=== PATIENT | female | born 1980 | race American Indian/Alaskan Native ===

== ENCOUNTER 2018-10-10 11:27 | Outpatient (CLI) | payer OTHER ==
--- NOTE | 2018-10-10 11:55 | Mammography Report ---
BILATERAL MAMMOGRAM: FINDINGS: Baseline mammogram. The breasts are almost entirely fat (<25% glandular). No mass, distortion, suspicious calcification, or skin change is seen. CAD was utilized. IMPRESSION: Negative mammogram. There is no mammographic evidence of malignancy. RECOMMENDATION: Follow-up per ACS guidelines. BI-RADS CATEGORY: 1 = Negative ACR BI-RADS MAMMOGRAPHIC CODES: 0 = Needs additional imaging evaluation; 1 = Negative; 2 = Benign; 3 = Probably benign; 4 = Suspicious; 5 = Malignant; 6 = Known biopsy-proven malignancy COMMENT: 1. Dense breast tissue, i.e., adenosis, fibrocystic changes, etc., may obscure an underlying neoplasm. 2. Approximately 10% of cancers are not detected with mammography. 3. A negative mammography report should not delay biopsy if a clinically suspicious mass is present. COMMENT: Patient follow-up letters are generated in [facility].
== END 2018-10-10 11:28 | disposition home or self-care (01) ==
LOC: SPVWC 11:27
PROVIDERS: ATTEND Family Medicine
DX: Z12.31 Encounter for screening mammogram for malignant neoplasm of breast (principal)
CPT/HCPCS: 77067

== ENCOUNTER 2018-11-03 18:42 | Emergency (ER) | payer OTHER ==
--- NOTE | 2018-11-03 19:01 | Emergency Department Report ---
Blank Doc - Documentation Documentation: This is a [id number] that presents with chest pain and shortness of breathe. Stated chest pain radiates to back. This initial assessment diagnostic orders/clinical plan/treatment(s) is/are subject to change based on patient's health status, clinical progression and re-assessment by fellow clinical providers in the ED. Further treatment and workup at subsequent clinical providers discretion. Patient/guardians urged not to elope from ED s their condition may be serious if not clinically assessed and managed. Initial orders include: 1-Patient sent to MAIN ED for further evaluation and treatment 2- EKG 3- CXR 4- Labs
[2018-11-03 19:37] LABS: Basophils % (Auto) 0.6 % (0.0-1.8); Eosinophils % (Auto) 0.4 % (0.0-4.3); Hematocrit 40.7 % (30.3-42.9); Hemoglobin 13.9 gm/dl (10.1-14.3); Lymphocytes # (Auto) 1.3 K/mm3 (1.2-5.4); Lymphocytes % (Auto) 21.3 % (13.4-35.0); Mean Corpuscular HGB Conc 34 % (30-34); Mean Corpuscular Volume 87 fl (79-97); Monocytes # (Auto) 0.5 K/mm3 (0.0-0.8); Monocytes % (Auto) 8.4 % (0.0-7.3); Platelet Count 197 K/mm3 (140-440); Red Blood Count 4.67 M/mm3 (3.65-5.03); Red Cell Distribution Width 14.2 % (13.2-15.2)
[2018-11-03 19:42] LABS: INR 0.95 (0.87-1.13); Partial Thromboplastin Time 33.4 Sec. (24.2-36.6)
[2018-11-03 19:55] LABS: Alanine Aminotransferase 21 units/L (7-56); Albumin 4.6 g/dL (3.9-5); BUN/Creatinine Ratio 10; Blood Urea Nitrogen 7 mg/dL (7-17); Calcium 9.3 mg/dL (8.4-10.2); Hemolysis Index 5
--- NOTE | 2018-11-03 20:44 | XRay Report ---
FINAL REPORT PROCEDURE: XR CHEST ROUTINE 2V TECHNIQUE: PA and lateral chest radiographs were obtained. CPT 01502 HISTORY: Chest Pain COMPARISON: No prior studies are available for comparison. FINDINGS: Heart: Normal. Mediastinum/Vessels: Normal. Lungs/Pleural space: Normal. Bony thorax: No acute osseous abnormality. Other: IMPRESSION: Normal examination.
[2018-11-03 21:48] LABS: Bilirubin,Urine NEG (Negative); Blood,Urine NEG (Negative); Color,Urine Straw (Yellow); Protein,Urine <15 mg/dL mg/dL (Negative); RBC,Urine < 1.0 /HPF (0.0-6.0); Urobilinogen,Urine < 2.0 mg/dL (<2.0); WBC,Urine < 1.0 /HPF (0.0-6.0)
[2018-11-03 21:56] LABS: Amphetamine Screen,Urine PRESUMPTIVE NEGATIVE; Benzodiazepines Screen,Urine PRESUMPTIVE NEGATIVE; Cannabinoid Screen,Urine PRESUMPTIVE NEGATIVE; Cocaine Screen,Urine PRESUMPTIVE NEGATIVE; Methadone Screen,Urine PRESUMPTIVE NEGATIVE; Opiate Screen,Urine PRESUMPTIVE NEGATIVE
--- NOTE | 2018-11-03 21:57 | Emergency Department Report ---
ED General Adult HPI - General Chief complaint: Chest Pain Stated complaint: CHEST PAIN/SOB Time Seen by Provider: 11/03/18 18:56 Source: patient Mode of arrival: Ambulatory Limitations: No Limitations - History of Present Illness Initial comments: Patient is a 38-year-old asthmatic female who is presenting with some chest discomfort. Patient states she has a mild cough is nonproductive and chest pain with coughing for the past 3 days. Patient states she also has some shortness of breath as well. Patient denies any fevers chills next if no sore throat at this time. Severity scale (0 -10): 3 Quality: aching Consistency: constant Associated Symptoms: chest pain, cough. denies: confusion, diaphoresis, fever/chills, headaches, loss of appetite, malaise, nausea/vomiting, rash, seizure, shortness of breath, syncope, weakness - Related Data Previous Rx's Medication Instructions Recorded Last Taken Type ALBUTEROL Inhaler (OR & NICU) 2 puff IH QID PRN #1 inhalation 11/03/18 Unknown Rx [ProAir HFA Inhaler] predniSONE [Deltasone] 20 mg PO QDAY #5 tab 11/03/18 Unknown Rx traMADol [Ultram] 50 mg PO Q6HR PRN #12 tablet 11/03/18 Unknown Rx Allergies Allergy/AdvReac Type Severity Reaction Status Date / Time No Known Allergies Allergy Unverified 11/03/18 18:55 ED Review of Systems ROS: Stated complaint: CHEST PAIN/SOB Other details as noted in HPI Comment: All other systems reviewed and negative ED Past Medical Hx - Past Medical History Previous Medical History?: No - Social History Smoking Status: Never Smoker Substance Use Type: None - Medications Home Medications: Home Medications Medication Instructions Recorded Confirmed Last Taken Type ALBUTEROL Inhaler (OR & NICU) 2 puff IH QID PRN #1 inhalation 11/03/18 Unknown Rx [ProAir HFA Inhaler] predniSONE [Deltasone] 20 mg PO QDAY #5 tab 11/03/18 Unknown Rx traMADol [Ultram] 50 mg PO Q6HR PRN #12 tablet 11/03/18 Unknown Rx ED Physical Exam - General Limitations: No Limitations General appearance: alert, in no apparent distress - Head Head exam: Present: atraumatic, normocephalic - Eye Eye exam: Present: normal appearance - ENT ENT exam: Present: mucous membranes moist - Neck Neck exam: Present: normal inspection - Respiratory Respiratory exam: Present: normal lung sounds bilaterally. Absent: respiratory distress, wheezes, rales, rhonchi - Cardiovascular Cardiovascular Exam: Present: regular rate, normal rhythm. Absent: systolic murmur, diastolic murmur, rubs, gallop - GI/Abdominal GI/Abdominal exam: Present: soft, normal bowel sounds. Absent: distended, tenderness, guarding, rebound - Extremities Exam Extremities exam: Present: normal inspection - Back Exam Back exam: Present: normal inspection - Neurological Exam Neurological exam: Present: alert, oriented X3 - Psychiatric Psychiatric exam: Present: normal affect, normal mood - Skin Skin exam: Present: warm, dry, intact, normal color. Absent: rash ED Course Vital Signs 11/03/18 11/03/18 11/03/18 19:19 21:16 21:31 Temperature 98.6 F Pulse Rate 66 53 L 54 L Respiratory 18 19 18 Rate Blood Pressure 145/100 137/78 117/69 O2 Sat by Pulse 100 97 99 Oximetry 11/03/18 21:41 Temperature Pulse Rate Respiratory 18 Rate Blood Pressure O2 Sat by Pulse 99 Oximetry ED Medical Decision Making - Lab Data Result diagrams: 11/03/18 19:09 11/03/18 19:09 Lab Results 11/03/18 11/03/18 11/03/18 Range/Units 19:09 19:09 19:09 WBC 6.1 (4.5-11.0) K/mm3 RBC 4.67 (3.65-5.03) M/mm3 Hgb 13.9 (10.1-14.3) gm/dl Hct 40.7 (30.3-42.9) % MCV 87 (79-97) fl MCH 30 (28-32) pg MCHC 34 (30-34) % RDW 14.2 (13.2-15.2) % Plt Count 197 (140-440) K/mm3 Lymph % (Auto) 21.3 (13.4-35.0) % [place] % (Auto) 8.4 H (0.0-7.3) % Eos % (Auto) 0.4 (0.0-4.3) % Baso % (Auto) 0.6 (0.0-1.8) % Lymph # 1.3 (1.2-5.4) K/mm3 [place] # 0.5 (0.0-0.8) K/mm3 Eos # 0.0 (0.0-0.4) K/mm3 Baso # 0.0 (0.0-0.1) K/mm3 Seg Neutrophils % 69.3 (40.0-70.0) % Seg Neutrophils # 4.2 (1.8-7.7) K/mm3 PT 13.3 (12.2-14.9) Sec. INR 0.95 (0.87-1.13) APTT 33.4 (24.2-36.6) Sec. D-Dimer 220.95 (0-234) ng/mlDDU Sodium 141 (137-145) mmol/L Potassium 4.1 (3.6-5.0) mmol/L Chloride 101.2 (98-107) mmol/L Carbon Dioxide 26 (22-30) mmol/L Anion Gap 18 mmol/L BUN 7 (7-17) mg/dL Creatinine 0.7 (0.7-1.2) mg/dL Estimated GFR > 60 ml/min BUN/Creatinine Ratio 10 % Glucose 116 H (65-100) mg/dL Calcium 9.3 (8.4-10.2) mg/dL Total Bilirubin 0.20 (0.1-1.2) mg/dL AST 22 (5-40) units/L ALT 21 (7-56) units/L Alkaline Phosphatase 93 (35-129) units/L Troponin T < 0.010 (0.00-0.029) ng/mL Total Protein 7.7 (6.3-8.2) g/dL Albumin 4.6 (3.9-5) g/dL Albumin/Globulin Ratio 1.5 % HCG, Qual (Negative) Urine Color (Yellow) Urine Turbidity (Clear) Urine pH (5.0-7.0) Ur Specific [place] (1.003-1.030) Urine Protein (Negative) mg/dL Urine Glucose (UA) (Negative) mg/dL Urine Ketones (Negative) mg/dL Urine Blood (Negative) Urine Nitrite (Negative) Urine Bilirubin (Negative) Urine Urobilinogen (<2.0) mg/dL Ur Leukocyte Esterase (Negative) Urine WBC (Auto) (0.0-6.0) /HPF Urine RBC (Auto) (0.0-6.0) /HPF Urine Opiates Screen Urine Methadone Screen Ur Barbiturates Screen Ur Phencyclidine Scrn Ur Amphetamines Screen U Benzodiazepines Scrn Urine Cocaine Screen U Marijuana (THC) Screen 11/03/18 11/03/18 11/03/18 Range/Units 19:09 21:19 21:19 WBC (4.5-11.0) K/mm3 RBC (3.65-5.03) M/mm3 Hgb (10.1-14.3) gm/dl Hct (30.3-42.9) % MCV (79-97) fl MCH (28-32) pg MCHC (30-34) % RDW (13.2-15.2) % Plt Count (140-440) K/mm3 Lymph % (Auto) (13.4-35.0) % [place] % (Auto) (0.0-7.3) % Eos % (Auto) (0.0-4.3) % Baso % (Auto) (0.0-1.8) % Lymph # (1.2-5.4) K/mm3 [place] # (0.0-0.8) K/mm3 Eos # (0.0-0.4) K/mm3 Baso # (0.0-0.1) K/mm3 Seg Neutrophils % (40.0-70.0) % Seg Neutrophils # (1.8-7.7) K/mm3 PT (12.2-14.9) Sec. INR (0.87-1.13) APTT (24.2-36.6) Sec. D-Dimer (0-234) ng/mlDDU Sodium (137-145) mmol/L Potassium (3.6-5.0) mmol/L Chloride (98-107) mmol/L Carbon Dioxide (22-30) mmol/L Anion Gap mmol/L BUN (7-17) mg/dL Creatinine (0.7-1.2) mg/dL Estimated GFR ml/min BUN/Creatinine Ratio % Glucose (65-100) mg/dL Calcium (8.4-10.2) mg/dL Total Bilirubin (0.1-1.2) mg/dL AST (5-40) units/L ALT (7-56) units/L Alkaline Phosphatase (35-129) units/L Troponin T (0.00-0.029) ng/mL Total Protein (6.3-8.2) g/dL Albumin (3.9-5) g/dL Albumin/Globulin Ratio % HCG, Qual Negative (Negative) Urine Color Straw (Yellow) Urine Turbidity Clear (Clear) Urine pH 6.0 (5.0-7.0) Ur Specific [place] Log 1.008 (1.003-1.030) Urine Protein <15 mg/dl (Negative) mg/dL Urine Glucose (UA) Neg (Negative) mg/dL Urine Ketones Neg (Negative) mg/dL Urine Blood Neg (Negative) Urine Nitrite Neg (Negative) Urine Bilirubin Neg (Negative) Urine Urobilinogen < 2.0 (<2.0) mg/dL Ur Leukocyte Esterase Neg (Negative) Urine WBC (Auto) < 1.0 (0.0-6.0) /HPF Urine RBC (Auto) < 1.0 (0.0-6.0) /HPF Urine Opiates Screen Presumptive negative Urine Methadone Screen Presumptive negative Ur Barbiturates Screen Presumptive negative Ur Phencyclidine Scrn Presumptive negative Ur Amphetamines Screen Presumptive negative U Benzodiazepines Scrn Presumptive negative Urine Cocaine Screen Presumptive negative U Marijuana (THC) Screen Presumptive negative - EKG Data -: EKG Interpreted by [place] EKG shows normal: sinus rhythm, axis, intervals, QRS complexes, ST-T waves Rate: normal - EKG Data Interpretation: normal EKG - Radiology Data CXR WNL - Medical Decision Making Patient with a normal troponin and normal d-dimer. Chest x-ray is within normal limits. Patient likely with mild upper respiratory infection with costochondr itis. Patient discharged home. Critical care attestation.: If time is entered above; I have spent that time in minutes in the direct care of this critically ill patient, excluding procedure time. ED Disposition Clinical Impression: Costochondral chest pain Upper respiratory infection Qualifiers: URI type: unspecified URI Qualified Code(s): J06.9 - Acute upper respiratory infection, unspecified Disposition: TO HOME OR SELFCARE Is pt being admited?: No Does the pt Need Aspirin: No Condition: Stable Instructions: Chest Pain (ED), Costochondritis (ED) Referrals: RAMANDEEP VILLALPANDO MD [Primary Care Provider] - 3-5 Days Time of Disposition: 22:08
[2018-11-03 22:29] VITALS: BP 116/67
== END 2018-11-03 22:36 | disposition home or self-care (01) ==
LOC: ED 18:42
DX: J06.9 Acute upper respiratory infection, unspecified (principal); R07.9 Chest pain, unspecified
CPT/HCPCS: 36415; 71046; 80053; 80307; 81001; 84484; 84703; 85025; 85379; 85610; 85730; 93005

== ENCOUNTER 2019-04-10 22:28 | Emergency (ER) | payer OTHER ==
[2019-04-10 22:46] VITALS: BP 120/83
--- NOTE | 2019-04-11 00:12 | XRay Report ---
CHEST 2 VIEWS INDICATION / CLINICAL INFORMATION: SHAYAN. COMPARISON: To 01/26/2019 FINDINGS: SUPPORT DEVICES: None. HEART / MEDIASTINUM: No significant abnormality. LUNGS / PLEURA: No significant pulmonary or pleural abnormality. No pneumothorax. ADDITIONAL FINDINGS: No significant additional findings. IMPRESSION: 1. No acute findings. Signer Name: Maurizio Luna MD Signed: 04/11/2019 12:08 AM Workstation Name: [id number]
[2019-04-11] MEDS ORDERED: ROCEPHIN IM ONE (00:47)
[2019-04-11] MEDS ORDERED: XYLOCAINE 1% MPF 5 mL INFILTRATI ONE (00:47)
[2019-04-11] MEDS ORDERED: TORADOL IM ONE (00:47)
[2019-04-11] MEDS ORDERED: PERCOCET 5/325 PO ONE (00:47)
[2019-04-11] MEDS ORDERED: ZOFRAN ODT PO ONE (00:47)
--- NOTE | 2019-04-11 01:46 | Emergency Department Report ---
ED General Adult HPI - General Chief complaint: Dental/Oral Stated complaint: SHAYAN TOOTH PAIN HEADACHE DIZZINESS Time Seen by Provider: 04/11/19 00:20 Source: patient Mode of arrival: Ambulatory Limitations: No Limitations - History of Present Illness Initial comments: Patient is a 39-year-old -[place] female with a history of chronic anxiety and dental abscesses who presents with the ED with worsening left maxillary and mandibular premolar molar toothache and swollen gums after having a dental procedure one week ago. The patient states that she initially was not taking any antibiotics after the procedure, and had the dentist call in a prescription of antibiotics over 12 hours ago, which she has only taken one dose. The patient is currently taking clindamycin 300 mg every 6 hours, and ibuprofen 800 mg. Patient states that her dental pain and painful gums got worse over 12 hours ago, despite taking the pain medication. Patient also complains of headache and lightheadedness as well as shortness of breath. Patient denies fever, chills, nausea, vomiting, chest pain, sore throat, change in vision, neck pain, abdominal pain, cough or diarrhea. MD Complaint: Gum pain, headache, lightheadedness -: Sudden, week(s) (1) Location: mouth Radiation: non-radiation Severity scale (0 -10): 6 Quality: aching, sharp Consistency: constant Improves with: none Worsens with: none Associated Symptoms: denies other symptoms, headaches, shortness of breath. denies: confusion, chest pain, cough, diaphoresis, fever/chills, loss of appetite, malaise, nausea/vomiting, rash, syncope, weakness Treatments Prior to Arrival: NSAID - Related Data Previous Rx's Medication Instructions Recorded Last Taken Type ALBUTEROL Inhaler (OR & NICU) 2 puff IH QID PRN #1 inhalation 11/03/18 Unknown Rx [ProAir HFA Inhaler] predniSONE [Deltasone] 20 mg PO QDAY #5 tab 11/03/18 Unknown Rx traMADol [Ultram] 50 mg PO Q6HR PRN #12 tablet 11/03/18 Unknown Rx Acetaminophen/Codeine [Tylenol 1 tab PO Q6H PRN #12 tab 04/11/19 Unknown Rx /Codeine # 3 tab] Ketorolac [Toradol] 10 mg PO Q8H PRN #20 tablet 04/11/19 Unknown Rx hydrOXYzine PAMOATE [Vistaril] 25 mg PO Q6HR PRN #30 capsule 04/11/19 Unknown Rx Allergies Allergy/AdvReac Type Severity Reaction Status Date / Time No Known Allergies Allergy Unverified 11/03/18 18:55 ED Review of Systems ROS: Stated complaint: SHAYAN TOOTH PAIN HEADACHE DIZZINESS Other details as noted in HPI Constitutional: denies: chills, fever Eyes: denies: eye pain, eye discharge, vision change ENT: dental pain, other (swollen left mandibular gums). denies: ear pain, throat pain Respiratory: shortness of breath. denies: cough, orthopnea, wheezing Cardiovascular: denies: chest pain, palpitations Endocrine: no symptoms reported Gastrointestinal: denies: abdominal pain, nausea, diarrhea Genitourinary: denies: urgency, dysuria, discharge Musculoskeletal: denies: back pain, joint swelling, arthralgia Skin: denies: rash, lesions Neurological: headache. denies: weakness, paresthesias Psychiatric: denies: anxiety, depression Hematological/Lymphatic: denies: easy bleeding, easy bruising ED Past Medical Hx - Past Medical History Previous Medical History?: Yes Hx Headaches / Migraines: Yes Hx Psychiatric Treatment: Yes (anxiety) - Surgical History Past Surgical History?: Yes Additional Surgical History: Hysterectomy - Social History Smoking Status: Never Smoker Substance Use Type: None - Medications Home Medications: Home Medications Medication Instructions Recorded Confirmed Last Taken Type ALBUTEROL Inhaler (OR & NICU) 2 puff IH QID PRN #1 inhalation 11/03/18 Unknown Rx [ProAir HFA Inhaler] predniSONE [Deltasone] 20 mg PO QDAY #5 tab 11/03/18 Unknown Rx traMADol [Ultram] 50 mg PO Q6HR PRN #12 tablet 11/03/18 Unknown Rx Acetaminophen/Codeine [Tylenol 1 tab PO Q6H PRN #12 tab 04/11/19 Unknown Rx /Codeine # 3 tab] Ketorolac [Toradol] 10 mg PO Q8H PRN #20 tablet 04/11/19 Unknown Rx hydrOXYzine PAMOATE [Vistaril] 25 mg PO Q6HR PRN #30 capsule 04/11/19 Unknown Rx ED Physical Exam - General Limitations: No Limitations General appearance: alert, in no apparent distress - Head Head exam: Present: atraumatic, normocephalic, normal inspection - Eye Eye exam: Present: normal appearance, PERRL, EOMI Pupils: Present: normal accommodation - ENT ENT exam: Present: normal exam, normal orophraynx, mucous membranes moist, TM's normal bilaterally, normal external ear exam, other (Swollen tender left mandibular and maxillary gums) - Neck Neck exam: Present: normal inspection, full ROM, lymphadenopathy. Absent: tenderness, meningismus, thyromegaly - Respiratory Respiratory exam: Present: normal lung sounds bilaterally. Absent: respiratory distress, wheezes, rales, rhonchi, chest wall tenderness, accessory muscle use, decreased breath sounds, prolonged expiratory - Cardiovascular Cardiovascular Exam: Present: regular rate, normal rhythm, normal heart sounds. Absent: systolic murmur, diastolic murmur, rubs, gallop - GI/Abdominal GI/Abdominal exam: Present: soft, normal bowel sounds. Absent: tenderness, hyperactive bowel sounds, hypoactive bowel sounds, mass - Rectal Rectal exam: Present: deferred - Extremities Exam Extremities exam: Present: normal inspection, full ROM, normal capillary refill - Back Exam Back exam: Present: normal inspection, full ROM. Absent: tenderness, CVA tenderness (R), CVA tenderness (L), muscle spasm, paraspinal tenderness - Neurological Exam Neurological exam: Present: alert, oriented X3, CN II-XII intact, normal gait, reflexes normal - Psychiatric Psychiatric exam: Present: normal affect, normal mood, anxious - Skin Skin exam: Present: warm, dry, intact, normal color. Absent: rash ED Course Vital Signs 04/10/19 22:45 Temperature 97.9 F Pulse Rate 61 Respiratory 20 Rate Blood Pressure 120/83 O2 Sat by Pulse 99 Oximetry - Reevaluation(s) Reevaluation #1: 04/11/19 01:47 This is a 39-year-old female with chronic anxiety and presented to the ED with swollen left maxillary and mandibular gums and dental procedure one week ago. Patient is alert and oriented 3 and is not in distress but anxious. Patient was treated for pain in the ED and discharged home on pain medications and advised to continue taking the clindamycin that was recently prescribed by a dentist. Patient was advised to return to the ED immediately if symptoms get worse. ED Medical Decision Making - Medical Decision Making This is a 39-year-old female with chronic anxiety and presented to the ED with swollen left maxillary and mandibular gums and dental procedure one week ago. Patient is alert and oriented 3 and is not in distress but anxious. Patient was treated for pain in the ED and discharged home on pain medications and advised to continue taking the clindamycin that was recently prescribed by a dentist. Patient was advised to return to the ED immediately if symptoms get worse. - Differential Diagnosis chronic anxiety, dental abscess; gingivitis; headache Critical care attestation.: If time is entered above; I have spent that time in minutes in the direct care of this critically ill patient, excluding procedure time. ED Disposition Clinical Impression: Gingivitis, acute, Anxiety as acute reaction to exceptional stress Headache, tension-type Qualifiers: Headache chronicity pattern: acute headache Intractability: not intractable Qualified Code(s): G44.209 - Tension-type headache, unspecified, not intractable Disposition: TO HOME OR SELFCARE Is pt being admited?: No Does the pt Need Aspirin: No Condition: Stable Instructions: Gingivitis (ED), Acute Headache (ED), Anxiety (ED) Additional Instructions: Take medications for pain as needed, continue taking the antibiotics that was recently prescribed and follow up with your dentist in 7-10 days for reevaluation. Return to the ED immediately if symptoms get worse. Prescriptions: Ketorolac [Toradol] 10 mg PO Q8H PRN #20 tablet PRN Reason: Pain Acetaminophen/Codeine [Tylenol /Codeine # 3 tab] 1 tab PO Q6H PRN #12 tab PRN Reason: Pain , Severe (7-10) hydrOXYzine PAMOATE [Vistaril] 25 mg PO Q6HR PRN #30 capsule PRN Reason: Anxiety Referrals: ARNIE NAIDU MD [Primary Care Provider] - 3-5 Days Time of Disposition: 01:50 Print Language: KOSOVAN
== END 2019-04-11 01:58 | disposition home or self-care (01) ==
LOC: ED 22:28
DX: K05.00 Acute gingivitis, plaque induced (principal); G44.209 Tension-type headache, unspecified, not intractable; F41.1 Generalized anxiety disorder; F43.0 Acute stress reaction; Z90.710 Acquired absence of both cervix and uterus; Z79.899 Other long term (current) drug therapy
CPT/HCPCS: 71046; 96372; 99283; J0696; J1885; Q0162

== ENCOUNTER 2019-08-28 17:57 | Emergency (ER) | payer OTHER ==
--- NOTE | 2019-08-28 20:35 | Event Note ---
ED Screening Note Date of service: 08/28/19 Time: 20:31 ED Screening Note: This is a 39 y.o. F. that presents to the ER with weakness and intermittent chest pain that started today. Patient states she received a call from her PCP stating electrolytes where off and to return to office for repeat labs by 1600. Patient states she was unable to follow up by that time. This initial assessment/diagnostic orders/clinical plan/treatment(s) is/are subject to change based on patients health status, clinical progression and re- assessment by fellow clinical providers in the ED. Further treatment and workup at subsequent clinical providers discretion. Patient/guardian urged not to elope from the ED as their condition may be serious if not clinically assessed and managed. Initial orders include: Labs, EKG, and CXR
--- NOTE | 2019-08-28 21:07 | XRay Report ---
CHEST 1 VIEW INDICATION / CLINICAL INFORMATION: chest pain. COMPARISON: 04/10/2019 FINDINGS: SUPPORT DEVICES: None. HEART / MEDIASTINUM: No significant abnormality. LUNGS / PLEURA: No significant pulmonary or pleural abnormality. No pneumothorax. ADDITIONAL FINDINGS: No significant additional findings. IMPRESSION: 1. No acute findings. Signer Name: Chapin Lopez MD Signed: 08/28/2019 9:03 PM Workstation Name: [id number]
[2019-08-28 21:30] LABS: Basophils % (Auto) 0.3 % (0.0-1.8); Hematocrit 43.5 % (30.3-42.9); Hemoglobin 14.7 gm/dl (10.1-14.3); Lymphocytes % (Auto) 11.3 % (13.4-35.0); Mean Corpuscular HGB Conc 34 % (30-34); Mean Corpuscular Volume 87 fl (79-97); Monocytes # (Auto) 0.5 K/mm3 (0.0-0.8); Monocytes % (Auto) 6.3 % (0.0-7.3); Platelet Count 232 K/mm3 (140-440); Red Cell Distribution Width 13.7 % (13.2-15.2)
[2019-08-28 21:53] LABS: Alanine Aminotransferase 11 units/L (7-56); Albumin 4.3 g/dL (3.9-5); BUN/Creatinine Ratio 11; Blood Urea Nitrogen 9 mg/dL (7-17); Calcium 9.5 mg/dL (8.4-10.2); Hemolysis Index 19
--- NOTE | 2019-08-29 02:54 | Emergency Department Report ---
ED General Adult HPI - General Chief complaint: Chest Pain Stated complaint: CHEST PAIN/LIGHT HEADED/WEAK Time Seen by Provider: 08/28/19 20:31 Source: patient, RN notes reviewed, old records reviewed Mode of arrival: Wheelchair Limitations: No Limitations - History of Present Illness Initial comments: Primary care Dr.: Dr. Vegas During the history and physical examination I am medical geneticist and escorted by nurse ANEESH HANSEN The patient is a 39-year-old female. The patient states that she is not . The patient presents to the ER with a complaint of resolved chest pain and lightheadedness. Patient reports being in her usual state of health approximately 12 hours prior to my evaluation, when she went into the shower, noted that it was very hot, and she began to feel lightheaded. She indicates that "my anxiety got up", and she developed left-sided nonradiating chest pressure, which lasted for about 15 minutes. She denies DVT and pulmonary embolism risk factors. She has not passed out or lost consciousness. She has mild left-sided dental pain, over her left posterior mandibular molar, from a recent dental extraction. Medications include sertraline, as well as buproprion for "anxiety." There is no complaint of headache, neck pain, abdominal pain, exertional shortness of breath, vomiting, diaphoresis. She has been symptom free in the emergency room 4 hours -: Sudden Location: chest Radiation: non-radiation Consistency: now resolved Improves with: none Worsens with: none - Related Data Previous Rx's Medication Instructions Recorded Last Taken Type ALBUTEROL Inhaler (OR & NICU) 2 puff IH QID PRN #1 inhalation 11/03/18 Unknown Rx [ProAir HFA Inhaler] predniSONE [Deltasone] 20 mg PO QDAY #5 tab 11/03/18 Unknown Rx traMADoL [Ultram] 50 mg PO Q6HR PRN #12 tablet 11/03/18 Unknown Rx Acetaminophen/Codeine [Tylenol 1 tab PO Q6H PRN #12 tab 04/11/19 Unknown Rx /Codeine # 3 tab] Ketorolac [Toradol] 10 mg PO Q8H PRN #20 tablet 04/11/19 Unknown Rx hydrOXYzine PAMOATE [Vistaril] 25 mg PO Q6HR PRN #30 capsule 04/11/19 Unknown Rx Allergies Allergy/AdvReac Type Severity Reaction Status Date / Time No Known Allergies Allergy Verified 08/28/19 17:59 ED Review of Systems ROS: Stated complaint: CHEST PAIN/LIGHT HEADED/WEAK Other details as noted in HPI Constitutional: denies: fever Eyes: denies: eye discharge ENT: denies: congestion Respiratory: denies: wheezing Cardiovascular: other Gastrointestinal: denies: vomiting Genitourinary: denies: dysuria Musculoskeletal: denies: myalgia Skin: denies: lesions Neurological: weakness Psychiatric: anxiety ED Past Medical Hx - Past Medical History Hx Headaches / Migraines: Yes Hx Psychiatric Treatment: Yes (anxiety) - Surgical History Additional Surgical History: Hysterectomy - Social History Smoking Status: Never Smoker Substance Use Type: None - Medications Home Medications: Home Medications Medication Instructions Recorded Confirmed Last Taken Type ALBUTEROL Inhaler (OR & NICU) 2 puff IH QID PRN #1 inhalation 11/03/18 Unknown Rx [ProAir HFA Inhaler] predniSONE [Deltasone] 20 mg PO QDAY #5 tab 11/03/18 Unknown Rx traMADoL [Ultram] 50 mg PO Q6HR PRN #12 tablet 11/03/18 Unknown Rx Acetaminophen/Codeine [Tylenol 1 tab PO Q6H PRN #12 tab 04/11/19 Unknown Rx /Codeine # 3 tab] Ketorolac [Toradol] 10 mg PO Q8H PRN #20 tablet 04/11/19 Unknown Rx hydrOXYzine PAMOATE [Vistaril] 25 mg PO Q6HR PRN #30 capsule 04/11/19 Unknown Rx ED Physical Exam - General Limitations: No Limitations General appearance: alert, in no apparent distress - Head Head exam: Present: atraumatic, normocephalic - Eye Eye exam: Present: normal appearance, PERRL, EOMI, other (visual acuity intact to finger counting and color perception at a close distance). Absent: nystagmus - ENT ENT exam: Present: normal exam, normal orophraynx, mucous membranes moist, normal external ear exam, other (patient speaking in full sentences. There is no stridor or dysphonia. No obvious bleeding noted intraorally.) - Neck Neck exam: Present: normal inspection, full ROM. Absent: tenderness, meningismus - Respiratory Respiratory exam: Present: normal lung sounds bilaterally. Absent: respiratory distress - Cardiovascular Cardiovascular Exam: Present: regular rate, normal rhythm, normal heart sounds. Absent: bradycardia, tachycardia, irregular rhythm, systolic murmur, diastolic murmur, rubs, gallop - GI/Abdominal GI/Abdominal exam: Present: soft. Absent: distended, tenderness, guarding, rebound, rigid, pulsatile mass - Extremities Exam Extremities exam: Present: normal inspection, full ROM, other (2+ pulses noted in the bilateral upper and lower extremities. The pelvis is stable. There is no long bony tenderness. The muscular compartments are soft. There is no redness, pus, streaking or erythema.). Absent: pedal edema, joint swelling, calf tenderness - Back Exam Back exam: Present: normal inspection, full ROM. Absent: tenderness, CVA tenderness (R), CVA tenderness (L), paraspinal tenderness, vertebral tenderness - Neurological Exam Neurological exam: Present: alert (there is no pass pointing. There is no pronator drift.), normal gait, other (there is no facial droop. The tongue is midline. Extraocular movements are intact bilaterally. Speaking in full sentences. Hearing is grossly intact. 5 out of 5 strength bilateral upper and lower extremities. Sensation is intact to light touch bilateral upper and lower extremities.). Absent: motor sensory deficit - Psychiatric Psychiatric exam: Present: anxious - Skin Skin exam: Present: warm, dry, intact, normal color. Absent: rash ED Course Vital Signs 08/28/19 08/29/19 20:31 01:55 Temperature 98.9 F 98.7 F Pulse Rate 64 56 L Respiratory 18 17 Rate Blood Pressure 116/69 Blood Pressure 133/75 [Right] O2 Sat by Pulse 96 98 Oximetry - Reevaluation(s) Reevaluation #1: 08/29/19 02:56 Patient also reported recently having outpatient laboratory studies suggest some mild hypokalemia, this is not present on today's examination. ED Medical Decision Making - Lab Data Result diagrams: 08/28/19 21:19 08/28/19 21:19 Vital Signs 08/28/19 08/29/19 20:31 01:55 Temperature 98.9 F 98.7 F Pulse Rate 64 56 L Respiratory 18 17 Rate Blood Pressure 116/69 Blood Pressure 133/75 [Right] O2 Sat by Pulse 96 98 Oximetry Lab Results 08/28/19 08/28/19 Range/Units 21:19 21:19 WBC 8.6 (4.5-11.0) K/mm3 RBC 5.00 (3.65-5.03) M/mm3 Hgb 14.7 H (10.1-14.3) gm/dl Hct 43.5 H (30.3-42.9) % MCV 87 (79-97) fl MCH 30 (28-32) pg MCHC 34 (30-34) % RDW 13.7 (13.2-15.2) % Plt Count 232 (140-440) K/mm3 Lymph % (Auto) 11.3 L (13.4-35.0) % Edwards % (Auto) 6.3 (0.0-7.3) % Eos % (Auto) 0.0 (0.0-4.3) % Baso % (Auto) 0.3 (0.0-1.8) % Lymph # 1.0 L (1.2-5.4) K/mm3 Edwards # 0.5 (0.0-0.8) K/mm3 Eos # 0.0 (0.0-0.4) K/mm3 Baso # 0.0 (0.0-0.1) K/mm3 Seg Neutrophils % 82.1 H (40.0-70.0) % Seg Neutrophils # 7.1 (1.8-7.7) K/mm3 Sodium 138 (137-145) mmol/L Potassium 3.9 (3.6-5.0) mmol/L Chloride 101.3 (98-107) mmol/L Carbon Dioxide 23 (22-30) mmol/L Anion Gap 18 mmol/L BUN 9 (7-17) mg/dL Creatinine 0.8 (0.7-1.2) mg/dL Estimated GFR > 60 ml/min BUN/Creatinine Ratio 11 % Glucose 146 H (65-100) mg/dL Calcium 9.5 (8.4-10.2) mg/dL Total Bilirubin 0.40 (0.1-1.2) mg/dL AST 11 (5-40) units/L ALT 11 (7-56) units/L Alkaline Phosphatase 70 (35-129) units/L Total Protein 7.7 (6.3-8.2) g/dL Albumin 4.3 (3.9-5) g/dL Albumin/Globulin Ratio 1.3 % - EKG Data -: EKG Interpreted by Me EKG shows normal: sinus rhythm Rate: normal - EKG Data 08/29/19 02:52 The EKG today is unchanged from prior EKG from October 2018 Sinus bradycardia, 56 bpm, borderline leftward axis deviation, borderline left anterior fascicular block, juvenile T-wave inversion V2, low voltage, not consistent with ST elevation myocardial infarction. - Radiology Data Radiology results: pending, report reviewed, image reviewed X-ray the chest is negative for acute disease - Medical Decision Making Differential diagnosis, including not limited to: Orthostasis, vagal event, anxiety, medication side effect, GERD, gastritis Assessment and plan: 39-year-old female with resolved chest discomfort and lightheadedness in the context of anxiety and hot shower. She is afebrile with reassuring vital signs. No pulmonary embolism or DVT risk factors, low risk by well's criteria, not tachycardic, tachypneic or hypoxic, perc negative Laboratory studies were ordered prior to my personal evaluation and they appear to be unremarkable. Her EKG today is unchanged from prior EKG. Patient is observed in the department for hours without clinical decompensation. Reassurance provided. We've recommended that she discuss her sertraline at buproprion prescriptions with her primary doctor, as they may be a contributing factor as they are known to cause dizziness, lightheadedness and somnolence. Critical care attestation.: If time is entered above; I have spent that time in minutes in the direct care of this critically ill patient, excluding procedure time. ED Disposition Clinical Impression: Chest discomfort, Light-headed feeling Disposition: DC-01 TO HOME OR SELFCARE Is pt being admited?: No Does the pt Need Aspirin: No Condition: Stable Additional Instructions: Drink 4-6 cups of water per day. Advance diet as tolerated. Recommend patient follow up with her primary care doctor for the following medications: sertraline and buprioprion These medications are known to cause dizziness and lightheadedness, therefore, patient may benefit from having her anxiety medications adjusted and/or amended. Patiently continue current outpatient medications otherwise. 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 Return to the emergency room right away with new, worse and different symptoms, or symptoms not present on the initial emergency room evaluation. Referrals: [facility] [Provider Group] - 7-10 days MATI VEGAS MD [Primary Care Provider] - 7-10 days
[2019-08-29 03:06] VITALS: BP 108/57
== END 2019-08-29 03:10 | disposition home or self-care (01) ==
LOC: ED 17:57
DX: R07.89 Other chest pain (principal); R42 Dizziness and giddiness; G43.909 Migraine, unspecified, not intractable, without status migrainosus; F41.9 Anxiety disorder, unspecified
CPT/HCPCS: 36415; 71045; 80053; 85025; 93005; 93010; 99284

== ENCOUNTER 2021-10-10 08:44 | Outpatient (CLI) | payer OTHER ==
--- NOTE | 2021-10-11 08:47 | Mammography Report ---
DIGITAL SCREENING MAMMOGRAM WITH CAD, 10/10/2021 CLINICAL INFORMATION / INDICATION: Routine screening mammography. TECHNIQUE: Digital bilateral 2D mammography was obtained in the craniocaudal and mediolateral obliqu e projections. This examination was interpreted with the benefit of Computer-Aided Detection analysis . COMPARISON: 10/20/2018 FINDINGS: Breast Density: There are scattered areas of fibroglandular density. No dominant mass, suspicious calcifications, or architectural distortion in either breast. There has been no significant interval change. IMPRESSION: No mammographic evidence of malignancy. Follow up recommendation: Routine yearly BI-RADS Category 1: NEGATIVE A "normal" or negative report should not discourage follow up or biopsy of a clinically significant f inding. A written summary of these findings will be mailed to the patient. The patient will be entered into a mammography reporting system which will generate a reminder letter for the patient's next appointmen t at the appropriate interval. The [employer] recommends yearly mammograms starting at age 40 and continuing as l shreya as a woman is in good health. Breast MRI is recommended for women with an approximate 20-25% or greater lifetime risk of breast cancer, including women with a strong family history of breast or [place] cancer or who have been treated for Hodgkin's disease. Signer Name: Vira Leija MD Signed: 10/11/2021 8:43 AM Workstation Name: [employer]
== END 2021-10-10 08:45 | disposition home or self-care (01) ==
LOC: SPVWC 08:44
PROVIDERS: ATTEND Family Medicine
DX: Z12.31 Encounter for screening mammogram for malignant neoplasm of breast (principal)
CPT/HCPCS: 77067